=== PATIENT | female | born 1955 | race Caucasian/White ===

== ENCOUNTER 2021-07-19 10:18 | Inpatient (IN) | payer MEDICAID, MEDICARE, SELFPAY ==
[~2021-07-19] VITALS: Ht 170.2 cm; Wt 63.0 kg
[2021-07-19 10:20] VITALS: BP 149/95
[2021-07-19] MEDS ORDERED: cefTRIAXone 1,000 MG in DEXT 5% MINI-BAG PLUS 50 ML IV ONE (10:20)
[2021-07-19] MEDS ORDERED: NACL 0.9% 1,000 ML IV SCH (10:20)
[2021-07-19] MEDS ORDERED: cefTRIAXone 1,000 MG VIAL ONE (11:03)
[2021-07-19 11:30] LABS: ALBUMIN 3.7 g/dL (3.4-5.0); ANION GAP 25.2 (8-16); CARBON DIOXIDE 17.2 mmol/L (21-32); CREATININE 1.1 mg/dL (0.6-1.3); POTASSIUM 4.4 mmol/L (3.5-5.1)
[2021-07-19 11:31] LABS: BASOPHILS % (AUTO) 0.4 % (0.0-2.0); HEMATOCRIT 46.9 % (36-48); HEMOGLOBIN 15.7 g/dL (12.0-16.0); LYMPHOCYTES # (AUTO) 1.1 K/uL (2.5-16.5); LYMPHOCYTES % (AUTO) 21.3 % (20.5-51.1); MEAN CORPUSCULAR HEMOGLOBIN 31 pg (27-31); MEAN CORPUSCULAR HGB CONC 34 g/dL (33-37); MEAN CORPUSCULAR VOLUME 91.1 fL (80-94); MONOCYTES # (AUTO) 0.7 K/uL (0.8-1.0); MONOCYTES % (AUTO) 13.2 % (1.7-9.3); NEUTROPHILS # (AUTO) 3.4 K/uL (1.8-7.7); NEUTROPHILS % (AUTO) 65.1 % (42.2-75.2); PLATELET COUNT (AUTO) 144 K/uL (140-450); RED BLOOD CELL COUNT(AUTO) 5.15 MIL/uL (4.20-5.40); RED CELL DISTRIBUTION WIDTH 14.4 % (11.6-13.7); WHITE BLOOD COUNT (AUTO) 5.3 K/uL (4.8-10.8)
[2021-07-19] MEDS ORDERED: MORPHINE SULFATE 4 MG/ML SYR IVP ONE (12:45)
[2021-07-19] MEDS ORDERED: DEXT 5% /NACL 0.9% 1,000 ML IV SCH (13:40)
[2021-07-19] MEDS ORDERED: HEPARIN PER PHARMACY MC PRN (13:40)
[2021-07-19 14:12] LABS: PROTHROMBIN TIME 14.2 secs (10.8-13.4)
[2021-07-19] MEDS ORDERED: hePARIN / DEXT 5% PREMIX 250 ML IV SCH (15:00)
[2021-07-19] MEDS ORDERED: ONDANSETRON 4 MG/2 ML VIAL IVP PRN (15:20)
[2021-07-19 15:23] LABS: APPEARANCE,URINE CLEAR (CLEAR); BILIRUBIN,URINE 2+ (NEGATIVE); BLOOD, URINE NEGATIVE (NEGATIVE); COLOR,URINE ORANGE (YELLOW); LEUKOCYTE ESTERASE ,URINE NEGATIVE (NEGATIVE); NITRITE, URINE NEGATIVE (NEGATIVE); UGLUCOSE NEGATIVE (NEGATIVE)
[2021-07-19] MEDS ORDERED: ACETAMINOPHEN 325 MG TAB PO PRN (16:15)
[2021-07-19] MEDS ORDERED: DOCUSATE SODIUM 100 MG GELCAP PO PRN (16:15)
[2021-07-19] MEDS ORDERED: HYDROcodone/APAP 7.5/325 MG 1 TAB PO PRN (16:15)
[2021-07-19] MEDS ORDERED: ZOLPIDEM 5 MG TAB PO PRN (16:15)
[2021-07-19] MEDS ORDERED: ONDANSETRON 4 MG/2 ML VIAL IM/IVP PRN (16:15)
[2021-07-19] MEDS ORDERED: POTASSIUM CHLORIDE 10 MEQ TABER PO PRN (16:15)
[2021-07-19] MEDS ORDERED: guaiFENesin DM 200/20 MG-10 ML 10 ML UDC PO PRN (16:15)
[2021-07-19 16:51] LABS: BARBITURATE, URINE NEGATIVE ng/ml (NEG <=200); BENZODIAZEPINE, URINE NEGATIVE ng/mL (NEG <=200); CANNABINOID, URINE NEGATIVE ng/mL (NEG <=50); COCAINE, URINE NEGATIVE ng/mL (NEG <=300); OPIATE, URINE NEGATIVE ng/mL (NEG <=2000); PHENCYCLIDINE SCREEN,URINE NEGATIVE ng/mL (NEG <=25)
[2021-07-19 16:53] LABS: CHOL/HDL RATIO 5.1 (1-4.5); FREE T4 (FREE THYROXINE) 0.93 ng/dL (0.76-1.46); MAGNESIUM 2.2 mg/dL (1.8-2.4); THYROID STIMULATING HORMONE 5.1 uIU/mL (0.34-3.74)
[2021-07-19] MEDS: DEXT 5% /NACL 0.9% 1,000 ML IV SCH (17:06)
[2021-07-19 18:47] VITALS: BP 124/76
[2021-07-19 20:00] VITALS: BP 120/79
[2021-07-19] MEDS ORDERED: MORPHINE SULFATE 2 MG/ML SYR IVP PRN (21:30)
[2021-07-20] VITALS: BP 107/65
[2021-07-20] MEDS: DEXT 5% /NACL 0.9% 1,000 ML IV SCH ×2 (02:15→11:49)
[2021-07-20 04:00] VITALS: BP 110/71
[2021-07-20 06:46] LABS: ANION GAP 15.1 (8-16); CARBON DIOXIDE 23.6 mmol/L (21-32); CREATININE 0.9 mg/dL (0.6-1.3); POTASSIUM 3.7 mmol/L (3.5-5.1)
[2021-07-20 07:04] LABS: BASOPHILS % (AUTO) 0.3 % (0.0-2.0); EOSINOPHILS % (AUTO) 0.2 % (0.0-4.0); HEMATOCRIT 41.8 % (36-48); HEMOGLOBIN 14.2 g/dL (12.0-16.0); LYMPHOCYTES # (AUTO) 0.7 K/uL (2.5-16.5); LYMPHOCYTES % (AUTO) 15.3 % (20.5-51.1); MEAN CORPUSCULAR HEMOGLOBIN 31 pg (27-31); MEAN CORPUSCULAR HGB CONC 34 g/dL (33-37); MEAN CORPUSCULAR VOLUME 91.5 fL (80-94); MONOCYTES # (AUTO) 0.6 K/uL (0.8-1.0); MONOCYTES % (AUTO) 13.2 % (1.7-9.3); RED BLOOD CELL COUNT(AUTO) 4.56 MIL/uL (4.20-5.40); RED CELL DISTRIBUTION WIDTH 14.5 % (11.6-13.7); WHITE BLOOD COUNT (AUTO) 4.3 K/uL (4.8-10.8)
[2021-07-20 08:00] VITALS: BP 112/71
[2021-07-20 08:01] LABS: PLATELET COUNT (AUTO) 139 K/uL (140-450)
[2021-07-20] MEDS: PANTOPRAZOLE 40 MG TABEC PO SCH (09:20)
[2021-07-20 12:00] VITALS: BP 117/75
[2021-07-20 16:00] VITALS: BP 110/68
[2021-07-20 20:00] VITALS: BP 103/63
[2021-07-21] VITALS: BP 102/62
[2021-07-21 04:00] VITALS: BP 101/65
[2021-07-21] MEDS: DEXT 5% /NACL 0.9% 1,000 ML IV SCH ×4 (04:55→19:57)
[2021-07-21 06:07] LABS: T4 (THYROXINE) 7.4 ug/dL (4.5-12.0)
[2021-07-21 06:51] LABS: ANION GAP 20.1 (8-16); CARBON DIOXIDE 19.9 mmol/L (21-32); CREATININE 0.9 mg/dL (0.6-1.3)
[2021-07-21 06:54] LABS: BASOPHILS % (AUTO) 0.3 % (0.0-2.0); EOSINOPHILS % (AUTO) 0.1 % (0.0-4.0); HEMATOCRIT 41.3 % (36-48); HEMOGLOBIN 13.9 g/dL (12.0-16.0); LYMPHOCYTES # (AUTO) 0.6 K/uL (2.5-16.5); LYMPHOCYTES % (AUTO) 15.6 % (20.5-51.1); MEAN CORPUSCULAR HEMOGLOBIN 31 pg (27-31); MEAN CORPUSCULAR HGB CONC 34 g/dL (33-37); MEAN CORPUSCULAR VOLUME 92.4 fL (80-94); MONOCYTES # (AUTO) 0.5 K/uL (0.8-1.0); MONOCYTES % (AUTO) 12.7 % (1.7-9.3); NEUTROPHILS # (AUTO) 2.9 K/uL (1.8-7.7); NEUTROPHILS % (AUTO) 71.3 % (42.2-75.2); PLATELET COUNT (AUTO) 99 K/uL (140-450); RED BLOOD CELL COUNT(AUTO) 4.47 MIL/uL (4.20-5.40); RED CELL DISTRIBUTION WIDTH 14.6 % (11.6-13.7); WHITE BLOOD COUNT (AUTO) 4.1 K/uL (4.8-10.8)
[2021-07-21 08:00] VITALS: BP 98/60
[2021-07-21] MEDS: PANTOPRAZOLE 40 MG TABEC PO SCH (09:59)
[2021-07-21 12:00] VITALS: BP 95/63
[2021-07-21 16:00] VITALS: BP 118/73
[2021-07-21] MEDS: MORPHINE SULFATE 2 MG/ML SYR IVP PRN (19:56)
[2021-07-21 20:00] VITALS: BP 107/68
[2021-07-22] VITALS: BP 100/65
[2021-07-22 04:00] VITALS: BP 107/67
[2021-07-22 07:08] LABS: ANION GAP 15.5 (8-16); BASOPHILS % (AUTO) 0.3 % (0.0-2.0); CARBON DIOXIDE 22.2 mmol/L (21-32); CREATININE 0.7 mg/dL (0.6-1.3); EOSINOPHILS % (AUTO) 0.2 % (0.0-4.0); HEMATOCRIT 35.4 % (36-48); HEMOGLOBIN 11.9 g/dL (12.0-16.0); LYMPHOCYTES # (AUTO) 0.7 K/uL (2.5-16.5); LYMPHOCYTES % (AUTO) 16.5 % (20.5-51.1); MEAN CORPUSCULAR HEMOGLOBIN 31 pg (27-31); MEAN CORPUSCULAR HGB CONC 34 g/dL (33-37); MEAN CORPUSCULAR VOLUME 92.4 fL (80-94); MONOCYTES # (AUTO) 0.7 K/uL (0.8-1.0); MONOCYTES % (AUTO) 16.4 % (1.7-9.3); NEUTROPHILS # (AUTO) 2.7 K/uL (1.8-7.7); NEUTROPHILS % (AUTO) 66.6 % (42.2-75.2); PLATELET COUNT (AUTO) 84 K/uL (140-450); POTASSIUM 3.7 mmol/L (3.5-5.1); RED BLOOD CELL COUNT(AUTO) 3.83 MIL/uL (4.20-5.40); WHITE BLOOD COUNT (AUTO) 4.1 K/uL (4.8-10.8)
[2021-07-22 08:00] VITALS: BP 100/62
[2021-07-22] MEDS: PANTOPRAZOLE 40 MG TABEC PO SCH (09:18)
[2021-07-22 12:00] VITALS: BP 115/73
[2021-07-22] MEDS: DEXT 5% /NACL 0.9% 1,000 ML IV SCH (14:15)
[2021-07-22 16:00] VITALS: BP 104/69
[2021-07-22 20:00] VITALS: BP 120/75
[2021-07-22] MEDS: MORPHINE SULFATE 2 MG/ML SYR IVP PRN (22:12)
[2021-07-23] VITALS: BP 109/70
[2021-07-23] MEDS: DEXT 5% /NACL 0.9% 1,000 ML IV SCH ×3 (01:34→20:15)
[2021-07-23 04:00] VITALS: BP 111/74
[2021-07-23 07:15] LABS: BASOPHILS % (AUTO) 0.2 % (0.0-2.0); EOSINOPHILS % (AUTO) 0.6 % (0.0-4.0); HEMATOCRIT 34.2 % (36-48); HEMOGLOBIN 11.7 g/dL (12.0-16.0); LYMPHOCYTES # (AUTO) 0.7 K/uL (2.5-16.5); MEAN CORPUSCULAR HEMOGLOBIN 31 pg (27-31); MEAN CORPUSCULAR HGB CONC 34 g/dL (33-37); MEAN CORPUSCULAR VOLUME 91.9 fL (80-94); MONOCYTES # (AUTO) 0.6 K/uL (0.8-1.0); MONOCYTES % (AUTO) 14.4 % (1.7-9.3); NEUTROPHILS # (AUTO) 2.8 K/uL (1.8-7.7); NEUTROPHILS % (AUTO) 68.8 % (42.2-75.2); PLATELET COUNT (AUTO) 89 K/uL (140-450); RED BLOOD CELL COUNT(AUTO) 3.72 MIL/uL (4.20-5.40); RED CELL DISTRIBUTION WIDTH 14.8 % (11.6-13.7); WHITE BLOOD COUNT (AUTO) 4.1 K/uL (4.8-10.8)
[2021-07-23 07:19] LABS: ANION GAP 13.2 (8-16); CARBON DIOXIDE 23.5 mmol/L (21-32); CREATININE 0.7 mg/dL (0.6-1.3); POTASSIUM 3.7 mmol/L (3.5-5.1)
[2021-07-23 08:00] VITALS: BP 99/67
[2021-07-23] MEDS: PANTOPRAZOLE 40 MG INJ VIAL IVP SCH (09:27)
[2021-07-23] MEDS: MORPHINE SULFATE 2 MG/ML SYR IVP PRN ×2 (11:09→20:47)
[2021-07-23 12:00] VITALS: BP 102/64
[2021-07-23 16:00] VITALS: BP 101/73
[2021-07-23 20:00] VITALS: BP 130/73
[2021-07-24] MEDS: DEXT 5% /NACL 0.9% 1,000 ML IV SCH ×2 (02:23→16:19)
[2021-07-24 04:00] VITALS: BP 116/77
[2021-07-24 06:29] LABS: BASOPHILS % (AUTO) 0.2 % (0.0-2.0); EOSINOPHILS # (AUTO) 0.1 K/uL (0-0.4); EOSINOPHILS % (AUTO) 0.9 % (0.0-4.0); HEMATOCRIT 36.1 % (36-48); LYMPHOCYTES # (AUTO) 0.8 K/uL (2.5-16.5); LYMPHOCYTES % (AUTO) 14.9 % (20.5-51.1); MEAN CORPUSCULAR HEMOGLOBIN 31 pg (27-31); MEAN CORPUSCULAR HGB CONC 33 g/dL (33-37); MEAN CORPUSCULAR VOLUME 92.7 fL (80-94); MONOCYTES # (AUTO) 0.9 K/uL (0.8-1.0); MONOCYTES % (AUTO) 16.3 % (1.7-9.3); NEUTROPHILS # (AUTO) 3.7 K/uL (1.8-7.7); NEUTROPHILS % (AUTO) 67.7 % (42.2-75.2); PLATELET COUNT (AUTO) 100 K/uL (140-450); RED CELL DISTRIBUTION WIDTH 14.7 % (11.6-13.7); WHITE BLOOD COUNT (AUTO) 5.5 K/uL (4.8-10.8)
[2021-07-24 06:42] LABS: ANION GAP 14.4 (8-16); CARBON DIOXIDE 24.4 mmol/L (21-32); CREATININE 0.8 mg/dL (0.6-1.3); POTASSIUM 3.8 mmol/L (3.5-5.1)
[2021-07-24 06:54] LABS: MAGNESIUM 1.6 mg/dL (1.8-2.4); PHOSPHORUS 1.9 mg/dL (2.5-4.9)
[2021-07-24 07:54] LABS: PROTHROMBIN TIME 14.2 secs (10.8-13.4)
[2021-07-24] MEDS: PANTOPRAZOLE 40 MG INJ VIAL IVP SCH (09:00)
[2021-07-24] MEDS ORDERED: DOCU-299 PO (10:51)
[2021-07-24] MEDS ORDERED: PRO40I IVP (10:51)
[2021-07-24] MEDS ORDERED: ACET-9531 PO (10:51)
[2021-07-24] MEDS ORDERED: ZOLP5TAB1 PO (10:51)
[2021-07-24 12:00] VITALS: BP 121/79
[2021-07-24] MEDS ORDERED: fentaNYL citrate 0.05 MG/ML VIAL ONE (13:14)
[2021-07-24] MEDS ORDERED: MIDAZOLAM 5 MG/5 ML VIAL ONE (13:15)
[2021-07-24] MEDS: MORPHINE SULFATE 2 MG/ML SYR IVP PRN (15:51)
[2021-07-24 20:00] VITALS: BP 104/67
[2021-07-25] MEDS: DEXT 5% /NACL 0.9% 1,000 ML IV SCH ×3 (01:39→22:15)
[2021-07-25 04:00] VITALS: BP 111/71
[2021-07-25 07:06] LABS: MAGNESIUM 1.5 mg/dL (1.8-2.4)
[2021-07-25 07:09] LABS: BASOPHILS % (AUTO) 0.3 % (0.0-2.0); EOSINOPHILS # (AUTO) 0.1 K/uL (0-0.4); EOSINOPHILS % (AUTO) 1.2 % (0.0-4.0); HEMATOCRIT 33.9 % (36-48); HEMOGLOBIN 11.5 g/dL (12.0-16.0); LYMPHOCYTES # (AUTO) 0.7 K/uL (2.5-16.5); LYMPHOCYTES % (AUTO) 14.4 % (20.5-51.1); MEAN CORPUSCULAR HEMOGLOBIN 31 pg (27-31); MEAN CORPUSCULAR HGB CONC 34 g/dL (33-37); MONOCYTES # (AUTO) 0.8 K/uL (0.8-1.0); MONOCYTES % (AUTO) 17.3 % (1.7-9.3); NEUTROPHILS # (AUTO) 3.3 K/uL (1.8-7.7); NEUTROPHILS % (AUTO) 66.8 % (42.2-75.2); PLATELET COUNT (AUTO) 98 K/uL (140-450); RED BLOOD CELL COUNT(AUTO) 3.68 MIL/uL (4.20-5.40); RED CELL DISTRIBUTION WIDTH 15.1 % (11.6-13.7); WHITE BLOOD COUNT (AUTO) 4.9 K/uL (4.8-10.8)
[2021-07-25 07:55] LABS: ANION GAP 13.5 (8-16); CARBON DIOXIDE 24.3 mmol/L (21-32); CREATININE 0.6 mg/dL (0.6-1.3); POTASSIUM 3.8 mmol/L (3.5-5.1)
[2021-07-25] MEDS: MORPHINE SULFATE 2 MG/ML SYR IVP PRN (08:42)
[2021-07-25] MEDS: PANTOPRAZOLE 40 MG INJ VIAL IVP SCH (08:42)
[2021-07-25] MEDS ORDERED: POTASSIUM CHLORIDE 10 MEQ TABER PO PRN (09:15)
[2021-07-25] MEDS ORDERED: MAG SULF 2000 MG/WATER PREMIX 50 ML IV PRN (09:15)
[2021-07-25] MEDS ORDERED: POTASSIUM PHOSPHATE 15 MM in NACL 0.9% 250 ML IV SCH (10:30)
[2021-07-25 12:00] VITALS: BP 112/72
[2021-07-25 20:00] VITALS: BP 129/69
[2021-07-26] MEDS: MORPHINE SULFATE 2 MG/ML SYR IVP PRN ×2 (03:49→08:47)
[2021-07-26 04:00] VITALS: BP 115/70
[2021-07-26 07:02] LABS: BASOPHILS % (AUTO) 0.2 % (0.0-2.0); EOSINOPHILS # (AUTO) 0.1 K/uL (0-0.4); EOSINOPHILS % (AUTO) 1.2 % (0.0-4.0); HEMATOCRIT 31.7 % (36-48); HEMOGLOBIN 10.7 g/dL (12.0-16.0); LYMPHOCYTES # (AUTO) 0.8 K/uL (2.5-16.5); LYMPHOCYTES % (AUTO) 17.3 % (20.5-51.1); MEAN CORPUSCULAR HEMOGLOBIN 31 pg (27-31); MEAN CORPUSCULAR HGB CONC 34 g/dL (33-37); MEAN CORPUSCULAR VOLUME 92.4 fL (80-94); MONOCYTES # (AUTO) 0.7 K/uL (0.8-1.0); MONOCYTES % (AUTO) 15.8 % (1.7-9.3); NEUTROPHILS % (AUTO) 65.5 % (42.2-75.2); PLATELET COUNT (AUTO) 104 K/uL (140-450); RED BLOOD CELL COUNT(AUTO) 3.43 MIL/uL (4.20-5.40); RED CELL DISTRIBUTION WIDTH 15.2 % (11.6-13.7); WHITE BLOOD COUNT (AUTO) 4.6 K/uL (4.8-10.8)
[2021-07-26 07:03] LABS: MAGNESIUM 2.1 mg/dL (1.8-2.4); PHOSPHORUS 2.1 mg/dL (2.5-4.9)
[2021-07-26 07:12] LABS: ANION GAP 12.9 (8-16); CARBON DIOXIDE 24.8 mmol/L (21-32); CREATININE 0.7 mg/dL (0.6-1.3); POTASSIUM 3.7 mmol/L (3.5-5.1)
[2021-07-26] MEDS: DEXT 5% /NACL 0.9% 1,000 ML IV SCH ×2 (08:15→18:15)
[2021-07-26] MEDS: PANTOPRAZOLE 40 MG INJ VIAL IVP SCH (08:40)
[2021-07-26] MEDS: SODIUM PHOS / POTASSIUM PHOS 1 PKT PDR PO SCH ×3 (08:40→17:46)
[2021-07-26 12:00] VITALS: BP 106/69
== END 2021-07-26 19:26 | disposition hospice, inpatient (51) | DRG 382 ==
LOC: MED 10:18 → MTU 11:33
PROVIDERS: ADMIT Family Medicine; ATTEND Family Medicine
PROC: 05HY33Z Insertion of Infusion Device into Upper Vein, Percutaneous Approach (ICD-10-PCS; 2021-07-19)
PROC: 0H9U3ZX Drainage of Left Breast, Percutaneous Approach, Diagnostic (ICD-10-PCS; principal; 2021-07-24)
DX: C50.912 Malignant neoplasm of unspecified site of left female breast (principal); G93.41 Metabolic encephalopathy; I21.A1 Myocardial infarction type 2; C79.51 Secondary malignant neoplasm of bone; D68.9 Coagulation defect, unspecified; E83.39 Other disorders of phosphorus metabolism; C78.7 Secondary malignant neoplasm of liver and intrahepatic bile duct; E86.0 Dehydration; N63.20 Unspecified lump in the left breast, unspecified quadrant; R74.01 Elevation of levels of liver transaminase levels; D25.9 Leiomyoma of uterus, unspecified; E83.42 Hypomagnesemia; Z20.822 Contact with and (suspected) exposure to COVID-19
CPT/HCPCS: 36415; 71045; 71270; 76641; 76705; 76942; 80048; 80053; 80305; 81003; 82150; 83036; 83605; 83690; 83735; 83880; 84100; 84436; 84439; 84443; 84479; 84484; 85025; 85610; 85730; 87040; 87081; 87086; 88305; 88313; 88342; 93005; 96361; 96365; 96375; 97163-GP; 99285; C9113; J0696; J1644; J2001; J2250; J2270; J2405; J3010; J3475; J7030; J7060; Q0092; Q9967